=== PATIENT | female | born 1990 | race Caucasian/White ===

== ENCOUNTER → 2017-06-16 | Outpatient (CLI) | payer SELFPAY ==
[2014-02-17 10:12] VITALS: BMI 39.6
[~2017-06-16] MED LIST: ALBU8.5H; ALBU8.5H IH; CYCL10TA29 PO; IBUP600T22 PO; LOR5/325 PO; MEDR5TAB PO; METF-1 PO; METF-410 PO; METH-543 PO; MULT1TAB64 PO; ONDA4TAB97 PO; OXYC-865 PO; POLY17PO25 PO; PRED-1 PO; QUET25TA30 PO; SIMVASTAT; TRAM-420 PO; VALA100059 PO
== END ==
LOC: AMB 00:26
PROVIDERS: ATTEND Nurse Practitioner
DX: R51 Headache (principal); M54.5 Low back pain; E11.9 Type 2 diabetes mellitus without complications; Y04.8XXA Assault by other bodily force, initial encounter
CPT/HCPCS: A0425; A0427

== ENCOUNTER 2017-07-07 21:11 | Emergency (ER) | payer SELFPAY ==
[2014-02-17 10:12] VITALS: Ht 182.9 cm; Wt 93.0 kg
[~2017-07-07] VITALS: Ht 182.9 cm; Wt 93.0 kg
--- NOTE | 2017-07-07 21:22 | ER Report ---
History and Physical Time Seen By MD: 21:22 Hx. of Stated Complaint: RUNNING TO HER CAR AND "FACE PLANTED". LEFT ANKLE PAIN, KNEE BRUISING, LEFT WRIST VRUISE HPI/ROS CHIEF COMPLAINT: ankle injury HISTORY OF PRESENT ILLNESS: This is a 27 year old female. She was running to her car and fell. Has left ankle pain, mainly on lateral ankle and foot. some bruising on knee and wrist. No other injuries. Normal movement of ankle and toes , but causes pain. Normal sensation in foot and toes. Allergies: Coded Allergies: latex (Verified Allergy, Intermediate, SWELLING/RASH, 07/07/17) morphine (Verified Allergy, Intermediate, SLEEP APNEA, 07/07/17) Uncoded Allergies: ARTIFICAL CINNAMON (Allergy, Severe, THROAT SWELLING, 02/18/14) BEES (Allergy, Unknown, SWELLING AT SITE OF STING, 02/18/14) Home Meds Reported Medications Multivitamin (MULTI VITAMIN DAILY) 1 Each Tablet, 1 EACH PO 09/02/14 Metformin Hcl (METFORMIN HCL) 500 Mg Tablet, 1 TAB PO BID, #45 TAKE ONE TABLET BY MOUTH EVERY MORNING WITH FOOD. TAKE TWO TABLETS BY MOUTH EVERY EVENING WITH FOOD. 02/18/14 Albuterol Sulfate 90 Mcg/Act (PROAIR HFA 90 MCG/ACT) 8.5 Gm Hfa.aer.ad, 1-2 PUFF IH 3-4XD 02/16/14 Discontinued Scripts Hydrocodone Bit/Acetaminophen (HYDROCODON-ACETAMINOPHEN 5-325) 1 Each Tablet, 1 EACH PO Q4H Y for PAIN, #8 TAB 0 Refills Prov:ADDISON RIVERA MD 06/16/17 Methocarbamol (ROBAXIN-750) 750 Mg Tablet, 1 TAB PO TID Y for muscle spasm relief, #20 Prov:CHANTEL TIRADO DO 02/20/17 Oxycodone Hcl/Acetaminophen (PERCOCET 5-325 MG TABLET) 1 Each Tablet, 1 EACH PO Q4H Y for PAIN, #12 TAB Prov:CHANTEL TIRADO DO 02/20/17 Reviewed Nurses Notes: Yes Hx Smoking: Yes (1.5 ppd) Smoking Status: Current: Every Day Smoker Exposure to Second Hand Smoke?: Yes Hx Substance Use Disorder: Yes (IV METH ABUSE) Hx Alcohol Use: Yes Constitutional Vital Sign - Last 24 Hours 07/07/17 07/07/17 21:13 22:44 Temp 98.3 Pulse 108 100 Resp 16 16 B/P (MAP) 128/85 124/89 (101) Pulse Ox 95 95 O2 Delivery Room Air Room Air Physical Exam General appearance: Patient is alert. No acute distress. Musculoskeletal: Left ankle shows mild swelling. There is no obvious deformity. Medial malleolus is minimally tender. Lateral malleolus is tender. Head of the fifth metatarsal is tender. Weight bearing: Weight bearing not tested due to pain. Neurologic: The patient has normal sensation distal to the injury. Active range of motion is intact, but with pain. Cardiovascular: Normal dorsalis pedis and posterior tibialis pulses. Normal capillary refill. Skin: No rash. Mild abrasion. Mild bruising. DIFFERENTIAL DIAGNOSIS: After history and physical exam differential diagnosis was considered for ankle injury including sprain, fracture, dislocation and soft tissue injury. Medical Decision Making EKG/Imaging Imaging ANKLE 3 VIEW MIN LEFT Indication: Left ankle pain after tripping. Comparison: None Available Findings: 3 views of the left ankle. No acute fracture or dislocation. No bony lesions or appreciable degenerative changes. Mild soft tissue edema. No radiopaque foreign body. IMPRESSION: 1. No acute osseous abnormality of the left ankle Report Dictated By: Abhishek Mtz at 07/07/2017 9:55 PM ED Course/Re-evaluation ED Course RENEE wrap and crutches provided after discussing the results of the x-ray with the patient. Conservative management of ankle sprain discussed. Decision to Disposition Date: Jul 07, 2017 Decision to Disposition Time: 22:36 Depart Departure Latest Vital Signs Vital Signs Date Time Temp Pulse Resp B/P (MAP) Pulse Ox O2 Delivery O2 Flow Rate FiO2 07/07/17 22:44 100 16 124/89 (101) 95 Room Air 07/07/17 21:13 98.3 Impression: Primary Impression: Ankle sprain Condition: Improved Disposition: HOME OR SELF-CARE Referrals: EMORY ZHANG (PCP) Patient Instructions: Ankle Sprain (ED) Additional Instructions: Ibuprofen 200mg over the counter tablets, take 4 tablets three times a day with food. Lortab 5/325, one every 4 hours as needed for pain. Apply ice 20 minutes every 1-2 hours while awake. An RENEE wrap can be used for compression to help reduce swelling. Rest the injured area, keep it elevated while at rest. Begin gentle range of motion exercises. Problem Qualifiers Primary Impression: Ankle sprain Encounter type: initial encounter Involved ligament of ankle: unspecified ligament Laterality: left Qualified Codes: S93.402A - Sprain of unspecified ligament of left ankle, initial encounter ADDISON RIVERA MD Jul 07, 2017 21:22
[2017-07-07] MEDS ORDERED: APAP/HYDROCODONE 325/5 TAB PO ONE (21:50)
--- NOTE | 2017-07-07 22:01 | RADIOLOGY IMAGING REPORT ---
FACILITY: [facility] PATIENT NAME: Dyan Lester : 1990 MR: [id number] V: [id number] EXAM DATE: ORDERING PHYSICIAN: ADDISON RIVERA TECHNOLOGIST: Location: [facility] Patient: Dyan Lester : 1990 Visit/Account:[id number] Date of Sevice: 07/07/2017 ANKLE 3 VIEW MIN LEFT Indication: Left ankle pain after tripping. Comparison: None Available Findings: 3 views of the left ankle. No acute fracture or dislocation. No bony lesions or appreciable degenerat tirso changes. Mild soft tissue edema. No radiopaque foreign body. IMPRESSION: 1. No acute osseous abnormality of the left ankle Report Dictated By: Abhishek Mtz at 07/07/2017 9:55 PM Report E-Signed By: Abhishek Mtz at 07/07/2017 9:57 PM WSN:[id number]
[2017-07-07] MEDS ORDERED: ACET/HYDROC 5/325MG TH ER ONLY 2 TAB/BOTTLE PO ONE (22:40)
[2017-07-07 22:44] VITALS: BP 124/89
== END 2017-07-07 22:46 | disposition home or self-care (01) ==
LOC: ER 21:27
DX: S93.402A Sprain of unspecified ligament of left ankle, initial encounter (principal); F17.210 Nicotine dependence, cigarettes, uncomplicated
CPT/HCPCS: 99283

== ENCOUNTER 2018-01-16 15:26 | Emergency (ER) | payer SELFPAY ==
[2014-02-17 10:12] VITALS: Wt 112.5 kg
[~2018-01-16 15:26] MED LIST changes: -METF-410 PO; +METF-411 PO
--- NOTE | 2018-01-16 15:35 | ER Report ---
History and Physical Time Seen By MD: 15:35 HPI/ROS CHIEF COMPLAINT: Headache HISTORY OF PRESENT ILLNESS: This is a 27-year-old female who presents to the emergency department for a headache. Patient states that about 3 days ago she woke up with a headache. Patient states this is an atypical type migraine headache, she has taken ibuprofen and Tylenol with caffeine with no resolution. She denies trauma. Patient states she does have a history of migraine headaches however this one is unusual and the most painful headache she has had. Patient has had nausea no vomiting. Intermittent diarrhea. No rashes, fevers, visual changes, chest pain or shortness of breath. Positive photophobia. REVIEW OF SYSTEMS: Constitutional: No fever, no chills. Eyes: No discharge. ENT: No sore throat. Cardiovascular: No chest pain, no palpitations. Respiratory: No cough, no shortness of breath. Gastrointestinal: As above. Genitourinary: No hematuria. Musculoskeletal: No back pain. Skin: No rashes. Neurological: As above. Allergies: Coded Allergies: latex (Verified Allergy, Intermediate, SWELLING/RASH, 01/16/18) morphine (Verified Allergy, Intermediate, SLEEP APNEA, 01/16/18) Uncoded Allergies: ARTIFICAL CINNAMON (Allergy, Severe, THROAT SWELLING, 02/18/14) BEES (Allergy, Unknown, SWELLING AT SITE OF STING, 02/18/14) Home Meds Active Scripts Ondansetron (ZOFRAN ODT) 4 Mg Tab.rapdis, 4 MG PO Q6H Y for NAUSEA/VOMITING, # 20 TAB.PERCY Prov:[employer]EE [employer]ICATION[employer]NAGER- 01/16/18 Discontinued Reported Medications Multivitamin (MULTI VITAMIN DAILY) 1 Each Tablet, 1 EACH PO 09/02/14 Metformin Hcl (METFORMIN HCL) 500 Mg Tablet, 1 TAB PO BID, #45 TAKE ONE TABLET BY MOUTH EVERY MORNING WITH FOOD. TAKE TWO TABLETS BY MOUTH EVERY EVENING WITH FOOD. 02/18/14 Albuterol Sulfate 90 Mcg/Act (PROAIR HFA 90 MCG/ACT) 8.5 Gm Hfa.aer.ad, 1-2 PUFF IH 3-4XD 02/16/14 Past Medical/Surgical History The patient has a past medical and surgical history of seizures, occasionally has an irregular heartbeat, polycystic ovarian syndrome, wears glasses, type II diabetes, intravenous methamphetamine abuse, history of MRSA, depression, anxiety, suicide attempt, left knee surgery, tonsillectomy. Reviewed Nurses Notes: Yes Hx Smoking: Yes (1.5 ppd) Smoking Status: Current: Every Day Smoker Exposure to Second Hand Smoke?: Yes Hx Substance Use Disorder: Yes (IV METH ABUSE) Hx Alcohol Use: Yes Constitutional Vital Sign - Last 24 Hours 01/16/18 01/16/18 15:33 18:58 Temp 98.7 Pulse 132 85 Resp 18 16 B/P (MAP) 129/89 142/88 (106) Pulse Ox 94 93 O2 Delivery Room Air Room Air Intake and Output 01/16/18 01/16/18 01/17/18 15:00 23:00 07:00 Intake Total 500 ml Balance 500 ml Physical Exam General Appearance: The patient is alert, has no immediate need for airway protection and no signs of toxicity. Eyes: Pupils equal and round no pallor or injection. EOMs intact. No nystatin is. ENT, Mouth: Mucous membranes are dry. Respiratory: There are no retractions, lungs are clear to auscultation. Cardiovascular: Regular rate and rhythm, no murmurs, clicks or rubs. Gastrointestinal: Abdomen is soft and non tender, no masses, bowel sounds normal. Neurological: Alert and oriented 4. Moving all extremities. Following all commands. No focal neuro deficits. Cranial nerves II through XII intact. Skin: Warm and dry, no rashes. Musculoskeletal: Neck is supple non tender. Extremities are nontender, nonswollen and have full range of motion. DIFFERENTIAL DIAGNOSIS: After history and physical exam differential diagnosis was considered for headache including but not limited to subarachnoid hemorrhage , migraine headache, tension headache and infectious causes such as meningitis, pharyngitis and sinusitis. Medical Decision Making Data Points Result Diagram: 01/16/18 1550 01/16/18 1550 Laboratory Hematology Test 01/16/18 15:50 Red Blood Count 4.99 M/uL (4.17-5.56) Mean Corpuscular Volume 93.7 fL (80.0-96.0) Mean Corpuscular Hemoglobin 33.4 pg (26.0-33.0) Mean Corpuscular Hemoglobin Concent 35.7 g/dL (32.0-36.0) Red Cell Distribution Width 12.3 % (11.5-14.5) Mean Platelet Volume 7.2 fL (7.2-11.1) Neutrophils (%) (Auto) 53.2 % (39.4-72.5) Lymphocytes (%) (Auto) 36.3 % (17.6-49.6) Monocytes (%) (Auto) 7.6 % (4.1-12.4) Eosinophils (%) (Auto) 1.8 % (0.4-6.7) Basophils (%) (Auto) 1.1 % (0.3-1.4) Nucleated RBC Relative Count (auto) 0.3 /100WBC Neutrophils # (Auto) 6.7 K/uL (2.0-7.4) Lymphocytes # (Auto) 4.6 K/uL (1.3-3.6) Monocytes # (Auto) 1.0 K/uL (0.3-1.0) Eosinophils # (Auto) 0.2 K/uL (0.0-0.5) Basophils # (Auto) 0.1 K/uL (0.0-0.1) Nucleated RBC Absolute Count (auto) 0.03 K/uL Sodium Level 131 mmol/L (137-145) Potassium Level 4.9 mmol/L (3.5-5.0) Chloride Level 99 mmol/L (98-107) Carbon Dioxide Level 19 mmol/L (22-31) Blood Urea Nitrogen 12 mg/dl (7-18) Creatinine 0.60 mg/dl (0.52-1.04) Glomerular Filtration Rate Calc > 60.0 Random Glucose 471 mg/dl (75-110) Calcium Level 9.0 mg/dl (8.4-10.2) Total Bilirubin 0.6 mg/dl (0.2-1.3) Aspartate Amino Transf (AST/SGOT) 26 U/L (0-35) Alanine Aminotransferase (ALT/SGPT) 25 U/L (0-56) Alkaline Phosphatase 104 U/L (0-126) Total Protein 7.4 g/dl (6.3-8.2) Albumin 4.1 g/dl (3.5-5.0) Human Chorionic Gonadotropin, Qual Negative (NEGATIVE) Chemistry Test 01/16/18 15:50 White Blood Count 12.6 k/uL (4.5-11.0) Red Blood Count 4.99 M/uL (4.17-5.56) Hemoglobin 16.7 g/dL (12.0-16.0) Hematocrit 46.7 % (34.0-47.0) Mean Corpuscular Volume 93.7 fL (80.0-96.0) Mean Corpuscular Hemoglobin 33.4 pg (26.0-33.0) Mean Corpuscular Hemoglobin Concent 35.7 g/dL (32.0-36.0) Red Cell Distribution Width 12.3 % (11.5-14.5) Platelet Count 364 K/uL (150-450) Mean Platelet Volume 7.2 fL (7.2-11.1) Neutrophils (%) (Auto) 53.2 % (39.4-72.5) Lymphocytes (%) (Auto) 36.3 % (17.6-49.6) Monocytes (%) (Auto) 7.6 % (4.1-12.4) Eosinophils (%) (Auto) 1.8 % (0.4-6.7) Basophils (%) (Auto) 1.1 % (0.3-1.4) Nucleated RBC Relative Count (auto) 0.3 /100WBC Neutrophils # (Auto) 6.7 K/uL (2.0-7.4) Lymphocytes # (Auto) 4.6 K/uL (1.3-3.6) Monocytes # (Auto) 1.0 K/uL (0.3-1.0) Eosinophils # (Auto) 0.2 K/uL (0.0-0.5) Basophils # (Auto) 0.1 K/uL (0.0-0.1) Nucleated RBC Absolute Count (auto) 0.03 K/uL Glomerular Filtration Rate Calc > 60.0 Calcium Level 9.0 mg/dl (8.4-10.2) Total Bilirubin 0.6 mg/dl (0.2-1.3) Aspartate Amino Transf (AST/SGOT) 26 U/L (0-35) Alanine Aminotransferase (ALT/SGPT) 25 U/L (0-56) Alkaline Phosphatase 104 U/L (0-126) Total Protein 7.4 g/dl (6.3-8.2) Albumin 4.1 g/dl (3.5-5.0) Human Chorionic Gonadotropin, Qual Negative (NEGATIVE) EKG/Imaging Imaging Location: [facility] [place] Patient: Dyan Lester : 1990 Visit/Account:[id number] Date of Sevice: 01/16/2018 EXAMINATION: CT HEAD WITHOUT CONTRAST COMPARISON: 06/16/2017. HISTORY: Headache. PROCEDURE: Noncontrast CT from the vertex through the skull base. One of the following dose optimization techniques was utilized in the performance of this exam: Automated exposure control; adjustment of the mA and/or kV according to the patient's size; or use of an iterative reconstruction technique. Specific details can be referenced in the facility's radiology CT exam operational policy. FINDINGS: Brain volume: Age-appropriate. Hemorrhage/extra-axial fluid: None. Mass effect/midline shift/edema: None. Ischemia: Mcdowell-white differentiation is preserved. Ventricles and basal cisterns: Within normal limits. Posterior fossa: Negative. Vessels: Negative. Calvarium, skull base, and scalp: Negative. Visualized sinuses and orbits: Within normal limits. IMPRESSION: Negative noncontrast head CT. Report Dictated By: Keon Keane MD at 01/16/2018 4:52 PM Report E-Signed By: Keon Keane MD at 01/16/2018 4:57 PM WSN:[id number] ED Course/Re-evaluation Clinical Indication for ER IV: Hydration, IV Access ED Course The patient was admitted to room. History and physical were obtained. Differential diagnoses were considered. An IV was started. A CBC, CMP were obtained. CBC showing white count of 12.6 A 1 L normal saline bolus was given. Sodium 131, glucose 471. Pt states this is from not taking her medications. Patient was given 4 mg IV Zofran, 25 mg IV Benadryl, 12.5 mg IV Phenergan, 10 mg IV Decadron, after negative head CT she was given 30 mg IV Toradol, repeat dose of 12.5 mg IV Phenergan. Negative hCG. Patient states she is feeling better and requesting to go home after I discussed the results. I did talk to her about her diabetes. I did tell her to follow up with her PCP within one week. I also recommended follow up with neurology or a headache specialist if the headaches continue. The patient was in agreement with this plan of care and discharged home. She was also encouraged to return to the ED for any other concerns or worsening symptoms. 01/16/2018 5:14:47 pm patient states her pain has improved however she still has some nausea. I did update the patient on the CT results which were negative for any acute intracranial abnormalities. Decision to Disposition Date: Jan 16, 2018 Decision to Disposition Time: 18:47 Depart Departure Latest Vital Signs Vital Signs Date Time Temp Pulse Resp B/P (MAP) Pulse Ox O2 Delivery O2 Flow Rate FiO2 01/16/18 18:58 85 16 142/88 (106) 93 Room Air 01/16/18 15:33 98.7 Impression: Primary Impression: Migraine headache Condition: Improved Disposition: HOME OR SELF-CARE Referrals: EMORY ZHANG (PCP) New Scripts Ondansetron (ZOFRAN ODT) 4 Mg Tab.rapdis 4 MG PO Q6H Y for NAUSEA/VOMITING, #20 TAB.PERCY Prov: [employer] 01/16/18 Patient Instructions: Migraine Headache (ED) Additional Instructions: Drink plenty of water. Try to get as much rest as possible. Follow-up with your primary care provider within one week for reevaluation. Consider following up with Neurology or a headache specialist if these headaches continue. Return to the ED for any other concerns or worsening symptoms. Problem Qualifiers Primary Impression: Migraine headache Migraine type: without aura Status migrainosus presence: without status migrainosus Intractability: not intractable Qualified Codes: G43.009 - Migraine without aura, not intractable, without status migrainosus [facility] Jan 16, 2018 15:35
[2018-01-16] MEDS ORDERED: NS(*) 0.9% 1000 ML BAG 1,000 ML IV ONE (15:46)
[2018-01-16] MEDS ORDERED: diphenhydrAMINE 50 MG/ML VIAL IVP ONE (15:50)
[2018-01-16] MEDS ORDERED: PROMETHAZINE 25 MG/ML 1 ML AMP IVP ONE ×2 (15:50→17:15)
[2018-01-16] MEDS ORDERED: DEXAMETHASONE SOD PHOS 10MG/ML IVP ONE (15:50)
[2018-01-16] MEDS ORDERED: ONDANSETRON 4 MG/2 ML VIAL IVP ONE (15:50)
[2018-01-16 16:10] LABS: PLATELET COUNT, AUTOMATED 364 K/uL (150-450)
--- NOTE | 2018-01-16 17:01 | RADIOLOGY IMAGING REPORT ---
FACILITY: [facility] PATIENT NAME: Dyan Lester : 1990 MR: [id number] V: [id number] EXAM DATE: ORDERING PHYSICIAN: K[employer] HICKMAN TECHNOLOGIST: Location: [facility] [place] Patient: Dyan Lester : 1990 Visit/Account:[id number] Date of Sevice: 01/16/2018 EXAMINATION: CT HEAD WITHOUT CONTRAST COMPARISON: 06/16/2017. HISTORY: Headache. PROCEDURE: Noncontrast CT from the vertex through the skull base. One of the following dose optimizat ion techniques was utilized in the performance of this exam: Automated exposure control; adjustment o f the mA and/or kV according to the patient's size; or use of an iterative reconstruction technique. Specific details can be referenced in the facility's radiology CT exam operational policy. FINDINGS: Brain volume: Age-appropriate. Hemorrhage/extra-axial fluid: None. Mass effect/midline shift/edema: None. Ischemia: Mcdowell-white differentiation is preserved. Ventricles and basal cisterns: Within normal limits. Posterior fossa: Negative. Vessels: Negative. Calvarium, skull base, and scalp: Negative. Visualized sinuses and orbits: Within normal limits. IMPRESSION: Negative noncontrast head CT. Report Dictated By: Keon Keane MD at 01/16/2018 4:52 PM Report E-Signed By: Keon Keane MD at 01/16/2018 4:57 PM WSN:[id number]
[2018-01-16] MEDS ORDERED: KETOROLAC 30 MG/ML VIAL IVP ONE (17:15)
[2018-01-16] MEDS ORDERED: ONDA4TAB PO (17:16)
[2018-01-16 18:58] VITALS: BP 142/88
== END 2018-01-16 18:58 | disposition home or self-care (01) ==
LOC: ER 15:29
DX: G43.909 Migraine, unspecified, not intractable, without status migrainosus (principal); F17.200 Nicotine dependence, unspecified, uncomplicated
CPT/HCPCS: 70450; 84703; 85025; 96374; 96375; 99284; J1100; J1200; J1885; J2405; J2550; J7030; 82040; 82247; 82310; 82374; 82435; 82565; 82947; 84075; 84132; 84155; 84295; 84450; 84460; 84520

== ENCOUNTER 2018-01-27 20:32 | Emergency (ER) | payer SELFPAY ==
[2014-02-17 10:12] VITALS: Wt 108.9 kg
[~2018-01-27 20:32] MED LIST changes: +ONDA4TAB PO
[2018-01-27 21:16] LABS: PLATELET COUNT, AUTOMATED 359 K/uL (150-450)
[2018-01-27] MEDS ORDERED: NS(*) 0.9% 1000 ML BAG 1,000 ML IV ONE ×2 (21:30→22:05)
[2018-01-27] MEDS ORDERED: IOPAMIDOL 76% 75 ML INFUS BTL 75 ML ONE (22:14)
--- NOTE | 2018-01-27 22:46 | RADIOLOGY IMAGING REPORT ---
FACILITY: [facility] PATIENT NAME: Dyan Lester : 1990 MR: [id number] V: [id number] EXAM DATE: ORDERING PHYSICIAN: TENZIN DONOVAN TECHNOLOGIST: Location: [facility] [place] Patient: Dyan Lester : 1990 Visit/Account:[id number] Date of Sevice: 01/27/2018 CHEST PA AND LAT COMPARISONS: June 16, 2017 ADDITIONAL PERTINENT HISTORY: Left lower thoracic pain FINDINGS: Cardiomediastinal silhouette: Negative. Pulmonary vasculature: Negative. Lung benson: Negative. Pleural spaces: Negative. Osseous structures: Negative. Surrounding soft tissues: Negative. IMPRESSION: Normal views of the chest. Report Dictated By: Mundo Carrillo MD at 01/27/2018 10:24 PM Report E-Signed By: Mundo Carrillo MD at 01/27/2018 10:43 PM WSN:[id number]
--- NOTE | 2018-01-27 23:19 | RADIOLOGY IMAGING REPORT ---
FAC[facility] PATIENT NAME: Dyan Lester : 1990 MR: [id number] V: [id number] EXAM DATE: ORDERING PHYSICIAN: TENZIN DONOVAN TECHNOLOGIST: Location: [facility] [place] Patient: Dyan Lester : 1990 Visit/Account:[id number] Date of Sevice: 01/27/2018 COMPUTED TOMOGRAPHY ABDOMEN AND PELVIS WITH INTRAVENOUS CONTRAST DATE OF EXAM: 01/27/2018 10:01 PM INDICATION: Left upper quadrant abdominal pain, leukocytosis. COMPARISON: Abdomen and pelvis 04/20/2017. TECHNIQUE: Contrast enhanced abdomen and pelvis CT performed during the injection of 75 ml of Isovue 370. Sagittal and coronal reconstructions were performed. One of the following dose optimization te chniques was utilized in the performance of this exam: Automated exposure control; adjustment of the mA and/or kV according to the patient's size; or use of an iterative reconstruction technique. Spec [facility] details can be referenced in the facility's radiology CT exam operational policy. FINDINGS: Lung bases: Minimal atelectasis. Liver and hepatic vasculature: No acute abnormality or suspicious lesion. [place] morphology of the liver. Small area of geographic increased attenuation in segment 3 likely represents a transient he patic attenuation difference. Gallbladder and bile ducts: Normal. Spleen: Normal. Pancreas: Normal. Adrenals: 1.7 cm left adrenal nodule, likely an adenoma, unchanged. Kidneys, ureters and bladder: Normal. Retroperitoneum and aorta: Normal. GI tract, mesentery and peritoneum: Nonacute. Appendectomy. Uterus and adnexa: Normal. Bones and soft tissues: No acute abnormality or suspicious lesion. IMPRESSION: No acute abnormality. Report Dictated By: Gaston Miguel MD at 01/27/2018 11:09 PM Report E-Signed By: Gaston Miguel MD at 01/27/2018 11:15 PM WSN:[id number]
[2018-01-27] MEDS ORDERED: FAMOTIDINE 20 MG TAB PO ONE (23:25)
[2018-01-27] MEDS ORDERED: MAG HYD/AL HYD/SIMETH 30ML UDC PO ONE (23:25)
--- NOTE | 2018-01-27 23:32 | ER Report ---
History and Physical Time Seen By MD: 20:40 Hx. of Stated Complaint: PATIENT STATES THAT SHE HAS ABD. PAIN SINCE 6AM TODAY; STATES THAT IT "FEELS LIKE ROCKS ARE GRINDING IN HER STOMACH"; STATES THAT SHE TOOK LAXATIVES BECAUSE SHE THOUGHT SHE WAS CONSTIPATED HPI/ROS CHIEF COMPLAINT: abdominal pain HISTORY OF PRESENT ILLNESS: pt awoke this am with luq abdominal pain; cramping, feels like her stomach is 'torn up', no radiation, no prior episodes, present throughout the day but fluctuating, no exacerbating/releiving factors. Nausea, no vomiting, no diarrhea, took laxative b/c she thought she might be constipated. No cp, sob, fevers, chills, change in urination REVIEW OF SYSTEMS: Constitutional: No fever, no chills. Eyes: No discharge. ENT: No sore throat. Cardiovascular: No chest pain, no palpitations. Respiratory: No cough, no shortness of breath. Gastrointestinal: above Genitourinary: No hematuria. Musculoskeletal: No back pain. Skin: No rashes. Neurological: No headache. Allergies: Coded Allergies: latex (Verified Allergy, Intermediate, SWELLING/RASH, 01/16/18) morphine (Verified Allergy, Intermediate, SLEEP APNEA, 01/16/18) Uncoded Allergies: ARTIFICAL CINNAMON (Allergy, Severe, THROAT SWELLING, 02/18/14) BEES (Allergy, Unknown, SWELLING AT SITE OF STING, 02/18/14) Home Meds Active Scripts Ondansetron (ZOFRAN ODT) 4 Mg Tab.rapdis, 4 MG PO Q6H Y for NAUSEA/VOMITING, # 20 TAB.PERCY Prov:KAISER HICKMAN USER INTERFACE ENGINEER-BC 01/16/18 Past Medical/Surgical History DM, sz disorder, not taking meds b/c of finances Reviewed Nurses Notes: Yes Old Medical Records Reviewed: Yes Hx Smoking: Yes (1.5 ppd) Smoking Status: Current: Every Day Smoker Exposure to Second Hand Smoke?: Yes Hx Substance Use Disorder: Yes (IV METH ABUSE; 7 MONTHS AGO) Hx Alcohol Use: Yes (OCC.) Constitutional Vital Sign - Last 24 Hours 01/27/18 01/27/18 01/27/18 01/27/18 20:32 20:36 20:47 21:02 Temp 98.5 Pulse 95 120 104 103 Resp 17 B/P (MAP) 138/97 Pulse Ox 94 92 94 94 O2 Delivery Room Air 01/27/18 01/27/18 01/27/18 01/27/18 21:17 22:45 23:15 23:30 Pulse 88 106 104 101 B/P (MAP) 118/68 (85) Pulse Ox 94 93 92 92 Physical Exam General Appearance: [The patient is alert, has no immediate need for airway protection and no signs of toxicity.] [ ] Eyes: Pupils equal and round no pallor or injection. ENT, Mouth: Mucous membranes are moist. Respiratory: There are no retractions, lungs are clear to auscultation. Cardiovascular: Regular rate and rhythm. [ ] Gastrointestinal: luq abd ttp, no peritoneal sgs, no other ttp throughout Neurological: alert, oriented, nad Skin: Warm and dry, no rashes. Musculoskeletal: Neck is supple non tender. Extremities are nontender, nonswollen and have full range of motion. DIFFERENTIAL DIAGNOSIS: After history and physical exam differential diagnosis was considered for abdominal pain including but not limited to appendicitis, cholecystitis, gastritis and urinary tract infection, dka Medical Decision Making Data Points Result Diagram: 01/27/18204901/27/18 2350 Laboratory Hematology Test 01/27/18 20:50 01/27/18 21:20 01/27/18 23:50 Red Blood Count 4.85 M/uL (4.17-5.56) Mean Corpuscular Volume 94.3 fL (80.0-96.0) Mean Corpuscular Hemoglobin 32.7 pg (26.0-33.0) Mean Corpuscular Hemoglobin Concent 35.2 g/dL (32.0-36.0) Red Cell Distribution Width 12.3 % (11.5-14.5) Mean Platelet Volume 7.9 fL (7.2-11.1) Neutrophils (%) (Auto) 60.6 % (39.4-72.5) Lymphocytes (%) (Auto) 30.5 % (17.6-49.6) Monocytes (%) (Auto) 6.2 % (4.1-12.4) Eosinophils (%) (Auto) 1.3 % (0.4-6.7) Basophils (%) (Auto) 1.4 % (0.3-1.4) Nucleated RBC Relative Count (auto) 0.1 /100WBC Neutrophils # (Auto) 9.2 K/uL (2.0-7.4) Lymphocytes # (Auto) 4.6 K/uL (1.3-3.6) Monocytes # (Auto) 0.9 K/uL (0.3-1.0) Eosinophils # (Auto) 0.2 K/uL (0.0-0.5) Basophils # (Auto) 0.2 K/uL (0.0-0.1) Nucleated RBC Absolute Count (auto) 0.01 K/uL Urine Color Straw Urine Clarity Slightly-cloudy Urine pH 5.0 pH (4.8-9.5) Urine Specific [place] 1.033 Urine Protein Negative mg/dL (NEGATIVE) Urine Glucose (UA) 500 mg/dL (NEGATIVE) Urine Ketones Trace mg/dL (NEGATIVE) Urine Blood Negative (NEGATIVE) Urine Nitrite Negative (NEGATIVE) Urine Bilirubin Negative (NEGATIVE) Urine Urobilinogen Negative mg/dL (0.2-1.9) Urine Leukocyte Esterase Negative (NEGATIVE) Urine RBC None /HPF (0-2/HPF) Urine WBC 2 /HPF (0-5/HPF) Urine Squamous Epithelial Cells Many /LPF (</=FEW) Urine Bacteria Few /HPF (NONE-FEW) Urine Mucus Few /HPF (NONE-FEW) Urine HCG, Qualitative Negative (NEGATIVE) Total Bilirubin 1.0 mg/dl (0.2-1.3) Aspartate Amino Transf (AST/SGOT) 34 U/L (0-35) Alanine Aminotransferase (ALT/SGPT) 27 U/L (0-56) Alkaline Phosphatase 118 U/L (0-126) Total Protein 7.8 g/dl (6.3-8.2) Albumin 4.1 g/dl (3.5-5.0) Lipase 172 U/L (23-300) Blood Gas Patient Temperature Unknown DEGREES Venous Blood pH 7.39 (7.31-7.41) Venous Blood Partial Pressure CO2 42 mmHg Venous Blood Partial Pressure O2 < 35 mmHg Venous Blood HCO3 25 mmol/L Venous Blood Oxygen Saturation 46 % Venous Blood Base Excess 0 mmol/L Oxygen Liters/Minute Unknown Sodium Level 130 mmol/L (137-145) Potassium Level 4.4 mmol/L (3.5-5.0) Chloride Level 102 mmol/L (98-107) Carbon Dioxide Level 17 mmol/L (22-31) Blood Urea Nitrogen 10 mg/dl (7-18) Creatinine 0.40 mg/dl (0.52-1.04) Glomerular Filtration Rate Calc > 60.0 Random Glucose 299 mg/dl (75-110) Calcium Level 8.0 mg/dl (8.4-10.2) Chemistry Test 01/27/18 20:50 01/27/18 21:20 01/27/18 23:50 White Blood Count 15.2 k/uL (4.5-11.0) Red Blood Count 4.85 M/uL (4.17-5.56) Hemoglobin 16.2 g/dL (12.0-16.0) Hematocrit 46.1 % (34.0-47.0) Mean Corpuscular Volume 94.3 fL (80.0-96.0) Mean Corpuscular Hemoglobin 32.7 pg (26.0-33.0) Mean Corpuscular Hemoglobin Concent 35.2 g/dL (32.0-36.0) Red Cell Distribution Width 12.3 % (11.5-14.5) Platelet Count 359 K/uL (150-450) Mean Platelet Volume 7.9 fL (7.2-11.1) Neutrophils (%) (Auto) 60.6 % (39.4-72.5) Lymphocytes (%) (Auto) 30.5 % (17.6-49.6) Monocytes (%) (Auto) 6.2 % (4.1-12.4) Eosinophils (%) (Auto) 1.3 % (0.4-6.7) Basophils (%) (Auto) 1.4 % (0.3-1.4) Nucleated RBC Relative Count (auto) 0.1 /100WBC Neutrophils # (Auto) 9.2 K/uL (2.0-7.4) Lymphocytes # (Auto) 4.6 K/uL (1.3-3.6) Monocytes # (Auto) 0.9 K/uL (0.3-1.0) Eosinophils # (Auto) 0.2 K/uL (0.0-0.5) Basophils # (Auto) 0.2 K/uL (0.0-0.1) Nucleated RBC Absolute Count (auto) 0.01 K/uL Urine Color Straw Urine Clarity Slightly-cloudy Urine pH 5.0 pH (4.8-9.5) Urine Specific [place] 1.033 Urine Protein Negative mg/dL (NEGATIVE) Urine Glucose (UA) 500 mg/dL (NEGATIVE) Urine Ketones Trace mg/dL (NEGATIVE) Urine Blood Negative (NEGATIVE) Urine Nitrite Negative (NEGATIVE) Urine Bilirubin Negative (NEGATIVE) Urine Urobilinogen Negative mg/dL (0.2-1.9) Urine Leukocyte Esterase Negative (NEGATIVE) Urine RBC None /HPF (0-2/HPF) Urine WBC 2 /HPF (0-5/HPF) Urine Squamous Epithelial Cells Many /LPF (</=FEW) Urine Bacteria Few /HPF (NONE-FEW) Urine Mucus Few /HPF (NONE-FEW) Urine HCG, Qualitative Negative (NEGATIVE) Total Bilirubin 1.0 mg/dl (0.2-1.3) Aspartate Amino Transf (AST/SGOT) 34 U/L (0-35) Alanine Aminotransferase (ALT/SGPT) 27 U/L (0-56) Alkaline Phosphatase 118 U/L (0-126) Total Protein 7.8 g/dl (6.3-8.2) Albumin 4.1 g/dl (3.5-5.0) Lipase 172 U/L (23-300) Blood Gas Patient Temperature Unknown DEGREES Venous Blood pH 7.39 (7.31-7.41) Venous Blood Partial Pressure CO2 42 mmHg Venous Blood Partial Pressure O2 < 35 mmHg Venous Blood HCO3 25 mmol/L Venous Blood Oxygen Saturation 46 % Venous Blood Base Excess 0 mmol/L Oxygen Liters/Minute Unknown Glomerular Filtration Rate Calc > 60.0 Calcium Level 8.0 mg/dl (8.4-10.2) Urinalysis Test 01/27/18 20:50 Urine Color Straw Urine Clarity Slightly-cloudy Urine pH 5.0 pH (4.8-9.5) Urine Specific [place] 1.033 Urine Protein Negative mg/dL (NEGATIVE) Urine Glucose (UA) 500 mg/dL (NEGATIVE) Urine Ketones Trace mg/dL (NEGATIVE) Urine Blood Negative (NEGATIVE) Urine Nitrite Negative (NEGATIVE) Urine Bilirubin Negative (NEGATIVE) Urine Urobilinogen Negative mg/dL (0.2-1.9) Urine Leukocyte Esterase Negative (NEGATIVE) Urine RBC None /HPF (0-2/HPF) Urine WBC 2 /HPF (0-5/HPF) Urine Squamous Epithelial Cells Many /LPF (</=FEW) Urine Bacteria Few /HPF (NONE-FEW) Urine Mucus Few /HPF (NONE-FEW) Urine HCG, Qualitative Negative (NEGATIVE) ED Course/Re-evaluation ED Course Pt presents with luq pain, no prior episodes, not taking metformin; concern for pud or complication of, pyelo/kidney stone, lower thoracic etiology, or diabetic emergency. Labs sig for hyperglycemia without dka/hnnk. I counceled pt at length on f/u with pcm, resources available to help pay for meds, as well as decision of spending on tobac/drugs in lieu of liesaving medications that she needs. No e/o thoracic/cardiac/abd emergency in ED hydrated with 2 l; will rpt bmp most likely c/w gastritis; will offer meds but recommend pt prioritize metformin Rpt BMp significantly improved. Pain improved only mildly but given lack of findings on imaging and benign exam, still unlikely to be emergent etiology, however pt understands importance of returning for any concerns. d/c [facility] Decision to Disposition Date: Jan 28, 2018 Decision to Disposition Time: 00:22 Depart Departure Latest Vital Signs Vital Signs Date Time Temp Pulse Resp B/P (MAP) Pulse Ox O2 Delivery O2 Flow Rate FiO2 01/27/18 23:30 101 92 01/27/18 22:45 118/68 (85) 01/27/18 20:36 98.5 17 Room Air Impression: Primary Impression: Abdominal pain Additional Impression: Hyperglycemia without ketosis Condition: Improved Disposition: HOME OR SELF-CARE Referrals: EMORY ZHANG (PCP) Patient Instructions: Diabetic Hyperglycemia (ED), Gastritis (ED) Additional Instructions: We discussed multiple ways to manage your pain; I recommend trying the OTC medications maalox and zantac, but as we discussed, you should prioritize metformin and control your glucose as both short and senior care glucose control is the most important way to prevent and serious complications. Please return for any concerns. Problem Qualifiers Primary Impression: Abdominal pain Abdominal location: epigastric Qualified Codes: R10.13 - Epigastric pain TENZIN DONOVAN MD Jan 27, 2018 23:33
[2018-01-28 00:35] VITALS: BP 122/80
== END 2018-01-28 00:38 | disposition home or self-care (01) ==
LOC: ER 20:42
DX: E11.10 Type 2 diabetes mellitus with ketoacidosis without coma (principal); R10.12 Left upper quadrant pain
CPT/HCPCS: 36415; 71046; 74177; 81001; 81025; 82803; 83690; 85025; 96360; 99284; J7030; Q9967; 82040; 82247; 82310; 82374; 82435; 82565; 82947; 84075; 84132; 84155; 84295; 84450; 84460; 84520

== ENCOUNTER 2018-05-15 23:36 | Emergency (ER) | payer SELFPAY ==
[2014-02-17 10:12] VITALS: Wt 107.0 kg
[~2018-05-15 23:36] MED LIST changes: -METF-411 PO; +METF-450 PO
[2018-05-15 23:39] VITALS: BP 136/102
--- NOTE | 2018-05-15 23:40 | ER Report ---
History and Physical Time Seen By MD: 23:41 HPI/ROS CHIEF COMPLAINT: Right facial swelling, toothache HISTORY OF PRESENT ILLNESS: 28-year-old female presents with right facial swelling. She notes that that 2nd to the rear posterior molar is inflamed. She notes a mass in her neck or soft tissue swelling below the margin of the mandible. She describes 4/10 pain. She notes pain with swallowing. She has no difficulty breathing. She denies fevers, but notes some chills. REVIEW OF SYSTEMS: Respiratory: No cough, no dyspnea. Cardiovascular: No chest pain, no palpitations. Gastrointestinal: No vomiting, no abdominal pain. Musculoskeletal: No back pain. Allergies: Coded Allergies: latex (Verified Allergy, Intermediate, SWELLING/RASH, 05/15/18) Uncoded Allergies: ARTIFICAL CINNAMON (Allergy, Severe, THROAT SWELLING, 02/18/14) BEES (Allergy, Unknown, SWELLING AT SITE OF STING, 02/18/14) Home Meds Active Scripts Clindamycin Hcl (CLINDAMYCIN HCL) 300 Mg Capsule, 300 MG PO TID for infection, #30 CAPSULE TAKE 1 CAPSULE EVERY SIX HOURS Prov:CHANTEL TIRADO DO 05/15/18 Reported Medications Chrom Ro/Brindall Thompson (GARCINIA CAMBOGIA TABLET) 1 Each Tablet, 1 TAB PO QDAY 05/15/18 Discontinued Scripts Ondansetron (ZOFRAN ODT) 4 Mg Tab.rapdis, 4 MG PO Q6H PRN for NAUSEA/VOMITING, #20 TAB.PERCY Prov:KAISER HICKMAN MARKET RESEARCH SPECIALIST-BC 01/16/18 Past Medical/Surgical History The patient has a past medical and surgical history of seizures, occasionally has an irregular heartbeat, polycystic ovarian syndrome, wears glasses, type II diabetes, intravenous methamphetamine abuse, history of MRSA, depression, anxiety, suicide attempt, left knee surgery, tonsillectomy. Hx Smoking: Yes (1.5 ppd) Smoking Status: Current: Every Day Smoker Exposure to Second Hand Smoke?: Yes Hx Substance Use Disorder: Yes (IV METH ABUSE; 7 MONTHS AGO) Hx Alcohol Use: Yes (OCC.) Constitutional Vital Sign - Last 24 Hours 05/15/18 23:39 Temp 98.9 Pulse 128 Resp 24 B/P (MAP) 136/102 Pulse Ox 94 Physical Exam General Appearance: The patient is alert, has no immediate need for airway protection and no current signs of toxicity. Vital signs stable, afebrile HEENT: Pupils equal and round no injection. TMs normal, TMJs nontender, examination of the oropharynx reveals tooth at position #30 appears to be absces sed. Her significant gum inflammation and swelling around it. Submandibularly. There is induration of the neck tissues. There is some lymphadenopathy appreciated on palpation Respiratory: Chest is non tender, lungs are clear to auscultation. Cardiac: regular rate and rhythm Gastrointestinal: Abdomen is soft and non tender, no masses, bowel sounds normal. Musculoskeletal: Neck: Neck is supple and non tender. As above Extremities have full range of motion and are non tender. Skin: No rashes or lesions. DIFFERENTIAL DIAGNOSIS: After history and physical exam differential diagnosis was considered for tooth abscess, osteomyelitis of the jaw, neck abscess, lymphadenopathy, dental abscess Medical Decision Making ED Course/Re-evaluation ED Course Patient was admitted to an examination room. H&P was done. The differential diagnosis was considered. On clinical examination, patient appears to have a tooth abscess. With some induration of the neck tissues and lymphadenopathy. I do not feel fluctuance or an abscess and needs to be drained at this time. Patient be treated with clindamycin 3 mg 3 times daily. She states she has no dental insurance. She is provided with a list of local dentists. Decision to Disposition Date: May 15, 2018 Decision to Disposition Time: 23:50 Depart Departure Latest Vital Signs Vital Signs Date Time Temp Pulse Resp B/P (MAP) Pulse Ox O2 Delivery O2 Flow Rate FiO2 05/15/18 23:39 98.9 128 24 136/102 94 Impression: Primary Impression: Abscessed tooth Condition: Improved Disposition: HOME OR SELF-CARE Referrals: EMORY ZHANG MARKET RESEARCH SPECIALIST (PCP) New Scripts Clindamycin Hcl (CLINDAMYCIN HCL) 300 Mg Capsule 300 MG PO TID for infection, #30 CAPSULE TAKE 1 CAPSULE EVERY SIX HOURS Prov: CHANTEL TIRADO DO 05/15/18 Patient Instructions: Dental Abscess (ED) Additional Instructions: Alternate ibuprofen and Tylenol as needed for pain relief Apply warm compresses to your jaw area that's affected Follow-up with a dentist as soon as possible CHANTEL TIRADO DO May 15, 2018 23:40
[2018-05-15] MEDS ORDERED: CHRO1TAB2 PO (23:44)
[2018-05-15] MEDS ORDERED: CLINDAMYCIN 150 MG CAP PO ONE (23:50)
[2018-05-15] MEDS ORDERED: CLIN300C99 PO (23:50)
[2018-05-16] MEDS ORDERED: traMADol 50 MG TAB TH 2 TAB/BOTTLE PO ONE
== END 2018-05-16 | disposition home or self-care (01) ==
LOC: ER 23:54
DX: K04.7 Periapical abscess without sinus (principal)
CPT/HCPCS: 99283; C9399

== ENCOUNTER 2018-05-25 14:33 | Emergency (ER) | payer SELFPAY ==
[2014-02-17 10:12] VITALS: Wt 107.0 kg
[~2018-05-25 14:33] MED LIST changes: +CHRO1TAB2 PO; +CLIN300C99 PO
[2018-05-25] MEDS ORDERED: ACETAMINOPHEN 500 MG TAB PO ONE ×2 (14:45→15:00)
[2018-05-25] MEDS ORDERED: APAP/HYDROCODONE 325/5 TAB PO ONE (15:00)
[2018-05-25] MEDS ORDERED: SULF-198 PO (15:02)
--- NOTE | 2018-05-25 15:03 | ER Report ---
History and Physical Time Seen By MD: 14:35 Hx. of Stated Complaint: PATIENT REPORTS ABSCESS ON LEFT KNEE HPI/ROS CHIEF COMPLAINT: Left knee swelling possible abscess HISTORY OF PRESENT ILLNESS: Patient is 22 female known history of MRSA infections multiple abscesses 1 to her left knee requiring hospitalization for a prolonged period of time comes in with another abscess to her left knee this in the medial aspect set this appointment last 3 or 4 days pain redness and swelling erythema and inflammation consistent with a probable abscess patient has mild fever at 100.4 patient denies any chest pain shortness breath nausea vomiting additional complaints REVIEW OF SYSTEMS: Respiratory: No cough, no dyspnea. Cardiovascular: No chest pain, no palpitations. Gastrointestinal: No vomiting, no abdominal pain. Musculoskeletal: No back pain. Remainder of the 14 system rev: Yes Allergies: Coded Allergies: latex (Verified Allergy, Intermediate, SWELLING/RASH, 05/15/18) Uncoded Allergies: ARTIFICAL CINNAMON (Allergy, Severe, THROAT SWELLING, 02/18/14) BEES (Allergy, Unknown, SWELLING AT SITE OF STING, 02/18/14) Home Meds Active Scripts Clindamycin Hcl (CLINDAMYCIN HCL) 300 Mg Capsule, 300 MG PO TID for infection, #30 CAPSULE TAKE 1 CAPSULE EVERY SIX HOURS Prov:CHANTEL TIRADO DO 05/15/18 Reported Medications Chrom Ro/Brindall Thompson (GARCINIA CAMBOGIA TABLET) 1 Each Tablet, 1 TAB PO QDAY 05/15/18 Reviewed Nurses Notes: Yes Old Medical Records Reviewed: Yes Hx Smoking: Yes (1.5 ppd) Smoking Status: Current: Every Day Smoker Exposure to Second Hand Smoke?: Yes Hx Substance Use Disorder: Yes (IV METH ABUSE; 7 MONTHS AGO) Hx Alcohol Use: Yes (OCC.) Constitutional Vital Sign - Last 24 Hours 05/25/18 14:40 Temp 100.0 Pulse 127 Resp 24 B/P (MAP) 127/86 Pulse Ox 93 O2 Delivery Room Air Physical Exam General appearance: Alert no distress. Respiratory: Chest is non tender, lungs are clear to auscultation. Cardiac: Regular rate and rhythm [ ] Left knee examination shows an 8 x 12 cm red warm erythematous cellulitic with a fluctuant center consistent with a probable abscess in the medial aspect of the knee not a septic joint no pain with full range of motion and flexion neurovascularly intact otherwise unremarkable DIFFERENTIAL DIAGNOSIS: After history and physical exam differential diagnosis was considered for cutaneous abscess Medical Decision Making ED Course/Re-evaluation ED Course ED clinical course 20 20 female with an obvious abscess to the medial aspect of her left knee due to the location and the prior history of interventricular particular infection I ordered blood cultures and a baseline labs and had orthopedics bedside evaluation determined at this time to be superficial cutaneous: Nature requested that I do an I&D which had performed and will follow up in 48 hours at the orthopedic clinic for further delineation we'll start her on by mouth antibiotics and pain medications Procedural note I&D was performed patient had her legs draped sterile aseptic technique performed approximately 2.5-3 mL of subcutaneous lidocaine with epinephrine was administered with good analgesia a single 11 blade incision was made approximately 1.5-2 cm in length pus was impacted from the wound site no culture was obtained wound was packed and with Madai form dressing patient tolerated procedure well Decision to Disposition Date: May 25, 2018 Decision to Disposition Time: 15:03 Depart Departure Latest Vital Signs Vital Signs Date Time Temp Pulse Resp B/P (MAP) Pulse Ox O2 Delivery O2 Flow Rate FiO2 05/25/18 14:40 100.0 127 24 127/86 93 Room Air Impression: Primary Impression: Abscess of knee Condition: Improved Disposition: HOME OR SELF-CARE Referrals: EMORY ZHANG SHAKE OUT WORKER (PCP) SOL DUNCAN MD 2 Days New Scripts Sulfamethoxazole/Trimet 800-160 Mg Tab (BACTRIM DS TABLET) 1 Each Tablet 1 TAB PO Q12H, #14 MG 0 Refills TAKE ONE TABLET BY MOUTH EVERY TWELVE HOURS Prov: KE ORR MD 05/25/18 KE ORR MD May 25, 2018 15:03
[2018-05-25 15:19] LABS: PLATELET COUNT, AUTOMATED 320 K/uL (150-450)
[2018-05-25 15:30] VITALS: BP 114/78
[2018-05-25 15:34] LABS: INR 0.93
--- NOTE | 2018-05-25 16:00 | RADIOLOGY IMAGING REPORT ---
FACILITY: [facility] PATIENT NAME: Dyan Lester : 1990 MR: [id number] V: [id number] EXAM DATE: ORDERING PHYSICIAN: KE ORR TECHNOLOGIST: Location: [facility] Patient: Dyan Lester : 1990 Visit/Account:[id number] Date of Sevice: 05/25/2018 Technique: KNEE 3 VIEW LEFT HISTORY: Abscess, pain Comparison studies: None FINDINGS: There is no acute fracture. The alignment of the left knee is maintained. No knee joint eff usion. IMPRESSION: 1. No acute osseous process. Report Dictated By: Omid Bray DO at 05/25/2018 3:55 PM Report E-Signed By: Omid Bray DO at 05/25/2018 3:56 PM WSN:[id number]
== END 2018-05-25 15:41 | disposition home or self-care (01) ==
LOC: ER 14:56
DX: L02.416 Cutaneous abscess of left lower limb (principal)
CPT/HCPCS: 36415; 82040; 82247; 82310; 82374; 82435; 82565; 82947; 84075; 84132; 84155; 84295; 84450; 84460; 84520; 85025; 85610; 85730; 87040; 99284